=== PATIENT | female | born 1990 | race Caucasian/White ===

== ENCOUNTER 2016-10-07 08:07 | Emergency (ER) | payer OTHER ==
--- NOTE | 2016-10-07 08:28 | ED MVC/FALL/TRAUMA COMPLAINT ---
History of Present Illness General Chief Complaint: Lower Extremity Injury Stated Complaint: RIGHT KNEE PAIN, S/P TRIP AND FALL Source: patient Exam Limitations: no limitations Vital Signs & Intake/Output Vital Signs & Intake/Output Vital Signs Date Time Temp Pulse Resp B/P Pulse O2 O2 Flow FiO2 Ox Delivery Rate 10/07 1030 97.8 66 18 117/57 99 Allergies Coded Allergies: No Known Allergies (10/07/16) Reconcile Medications Cyclobenzaprine HCl 10 MG TABLET 1 TAB PO TID PRN SPASM DO NOT DRIVE WITH THIS MEDICATION Ibuprofen 800 MG TABLET 1 TAB PO TID PAIN Triage Note: Triage: 26 Y/O FEMALE PRESENTS S/P FALL LAST NIGHT WHILE GETTING READY TO GO OUT. RIGHT KNEE APPEARS SWOLLEN. REPORTS TOOK 4 ADVIL LAST NIGHT. Triage Nurses Notes Reviewed? yes Onset: Abrupt Duration: day(s): (1) Timing: single episode today Severity: moderate, severe Injuries/Fall Location: RIGHT LATERAL KNEE Method of Injury: fall Loss of Consciousness: prolonged (minutes) Modifying Factors: Worsens With: movement, other (WALKING). : No Patient currently breastfeeds: No HPI: 26-year-old female who presents to the ER with chief complaint of right lateral knee pain status post trip and fall down 8-10 stairs last night while going out to a alliance party. She states that she was having the pain prior to the fall from exercising and as soon as she fell down she felt like she exacerbated her knee strain. No head trauma loss of consciousness. Pain is worse with ambulation and range of motion. She took 4 Advil last night with minimal relief. Denies any bruising but complains of some swelling at the knee. No other injury. Past History Travel History Traveled to [place] past 21 day No Medical History Any Pertinent Medical History? see below for history Neurological: NONE EENT: NONE Cardiovascular: NONE Respiratory: NONE Gastrointestinal: NONE Hepatic: NONE Renal: NONE Musculoskeletal: NONE Psychiatric: NONE Endocrine: NONE Blood Disorders: NONE Cancer(s): NONE WAITER/WAITRESS SECOND CLASS/Reproductive: NONE Surgical History Surgical History: none Psychosocial History What is your primary language Nepali Tobacco Use: Current Daily Use Daily Tobacco Use Amount/Type: =< 4 Cigarettes daily ETOH Use: occasional use Illicit Drug Use: denies illicit drug use Family History Hx Contributory? No Review of Systems Review of Systems Constitutional: Denies: chills, fever. Eyes: Reports: no symptoms. Ears, Nose, Throat, Mouth: Reports: no symptoms. Respiratory: Denies: short of breath. Cardiovascular: Reports: no symptoms. Gastrointestinal/Abdominal: Denies: abdominal pain. Genitourinary: Reports: no symptoms. Musculoskeletal: Reports: joint pain, joint swelling, muscle pain. Skin: Reports: no symptoms. Neurological/Psychological: Reports: ataxia. Denies: headache. All Other Systems: Reviewed and Negative Physical Exam Physical Exam General Appearance: well developed/nourished, alert, awake, mild distress Head: atraumatic, normal appearance Eyes: Bilateral: normal appearance. Ears, Nose, Throat, Mouth: hearing grossly normal, moist mucous membrane Respiratory: chest non-tender Cardiovascular: regular rate/rhythm Peripheral Pulses: 2+ radial (R), 2+ radial (L), 2+ dorsalis pedis (R), 2+ dorsalis pedis (L) Gastrointestinal: soft, non-tender, OBESE Extremities: normal range of motion, pain with movement, TENDER RIGHT LATERAL KNEE, NO BRUISING STABLE KNEE JOINT EXAMINATION ABLE TO STRAIGHT LEG RAISE Neurologic/Psych: no motor/sensory deficits, awake, alert, oriented x 3 Skin: intact, normal color, warm/dry Core Measures ACS in differential dx? No Severe Sepsis Present: No Septic Shock Present: No Progress Differential Diagnosis: FRACTURE, SPRAIN, MENISCAL INJURY, TENDINITIS Plan of Care: Orders Procedure Date/time Status Durable Medical Equipment 10/07 104 Active Diagnostic Imaging: Viewed by Me: Radiology Read. Discussed w/RAD: Radiology Read. Comments: PATIENT: GERALDINE RETANA PRESENT AGE: 26 PATIENT ACCOUNT NO: [id number] : 89 LOCATION: [facility] ORDERING PHYSICIAN: CARMEN WHITESIDE MD SERVICE DATE: 10/07/16 EXAM TYPE: RAD - XRY-KNEE COMPLETE RIGHT; [id number], RIGHT EXAMINATION: XR TIBIA AND FIBULA, RIGHT XR KNEE, RIGHT CLINICAL INFORMATION: 26-year-old female with right knee pain and right leg pain, status post fall down stairs. Suspected fracture. COMPARISON: None TECHNIQUE: AP and lateral views of the right tibia and fibula were obtained. 4 views of the right knee were obtained. FINDINGS: RIGHT LEG: The bony alignment is intact. The cortices are intact. No focal osseous abnormalities present. The soft tissues are unremarkable. RIGHT KNEE: The bony alignment is intact. The cortices are intact. Articular margins, joint space appear intact. The soft tissues are unremarkable. There is no joint effusion identified. IMPRESSION: 1. No radiographic evidence of any acute fracture, dislocation, or joint effusion is present at the right knee. 2. No radiographic evidence of fracture or dislocation at the right leg. DICTATED BY: MARK ESCOBEDO MD DATE/TIME DICTATED:10/07/161006 CHIEF RADIOLOGY:[facility]ERTO DATE/TIME TRANSCRIBED:10/07/161006 CONFIDENTIAL, DO NOT COPY WITHOUT APPROPRIATE AUTHORIZATION. <Electronically signed in Other Vendor System> SIGNED BY: MARK ESCOBEDO MD 10/07/16 1039 Departure Departure Time of Disposition: 7 Disposition: HOME OR SELF CARE Condition: Stable Clinical Impression Primary Impression: Right knee sprain Referrals: GUERLINE TOMLINSON MD Additional Instructions: Use the knee immobilizer as directed. Please take ibuprofen as directed. Flexeril as needed for spasm. Please rest, ice and elevate the leg. Follow-up with the rn orthopedic listed for any persistent symptoms. You may need further evaluation of your knee with an MRI if the orthopedic doctor feels it is warranted. Departure Forms: Customer Survey General Discharge Information Prescriptions: Current Visit Scripts Ibuprofen 1 TAB PO TID #30 TAB Cyclobenzaprine HCl 1 TAB PO TID PRN SPASM #[address] WITH THIS MEDICATION Procedures Splinting Location: RIGHT KNEE IMMOBILIZER
[2016-10-07 10:30] VITALS: BP 117/57
--- NOTE | 2016-10-07 10:39 | RADIOLOGY REPORT ---
EXAMINATION: XR TIBIA AND FIBULA, RIGHT XR KNEE, RIGHT CLINICAL INFORMATION: 26-year-old female with right knee pain and right leg pain, status post fall down stairs. Suspected fracture. COMPARISON: None TECHNIQUE: AP and lateral views of the right tibia and fibula were obtained. 4 views of the right knee were obtained. FINDINGS: RIGHT LEG: The bony alignment is intact. The cortices are intact. No focal osseous abnormalities present. The soft tissues are unremarkable. RIGHT KNEE: The bony alignment is intact. The cortices are intact. Articular margins, joint space appear intact. The soft tissues are unremarkable. There is no joint effusion identified. IMPRESSION: 1. No radiographic evidence of any acute fracture, dislocation, or joint effusion is present at the right knee. 2. No radiographic evidence of fracture or dislocation at the right leg.
[2016-10-07] MEDS ORDERED: IBUPROFEN800 M1 PO (10:49)
[2016-10-07] MEDS ORDERED: CYCLOBENZAPRINE10 M1 PO (10:49)
== END 2016-10-07 10:59 ==
LOC: ERH 08:07
DX: S83.91XA Sprain of unspecified site of right knee, initial encounter (principal); W10.9XXA Fall (on) (from) unspecified stairs and steps, initial encounter; Y93.9 Activity, unspecified; Y92.9 Unspecified place or not applicable
CPT/HCPCS: 73562-RT; 73590-RT; 81025; 96372; J1885